=== PATIENT | female | born 1960 | race Caucasian/White ===

== ENCOUNTER 2018-01-04 16:31 | Emergency (ER) | payer OTHER ==
[~2018-01-04] VITALS: Ht 165.1 cm; Wt 70.0 kg
[2018-01-04 16:36] VITALS: BP 159/69
== END 2018-01-04 20:29 | disposition left against medical advice (07) ==
LOC: ER 16:31
DX: R10.9 Unspecified abdominal pain (principal); Z53.21 Procedure and treatment not carried out due to patient leaving prior to being seen by health care provider

== ENCOUNTER 2020-08-26 14:55 | Emergency (ER) | payer OTHER ==
[~2020-08-26] VITALS: Ht 160 cm; Wt 78.0 kg
[2020-08-26] MEDS ORDERED: IBUPROFEN 600MG TABLET PO ONE (16:30)
[2020-08-26] MEDS ORDERED: ONDANSETRON 4MG ODT PO ONE (16:30)
[2020-08-26] MEDS ORDERED: IBUP-2028 MT (16:37)
[2020-08-26] MEDS ORDERED: ONDA4TAB5 MT (16:37)
[2020-08-26 16:46] VITALS: BP 139/75
== END 2020-08-26 16:46 | disposition home or self-care (01) ==
LOC: ER 14:55
DX: S09.8XXA Other specified injuries of head, initial encounter (principal); M54.2 Cervicalgia; I10 Essential (primary) hypertension; W22.8XXA Striking against or struck by other objects, initial encounter; Y93.89 Activity, other specified; R03.0 Elevated blood-pressure reading, without diagnosis of hypertension
CPT/HCPCS: 99283; Q0162